=== PATIENT | female | born 1950 | race Caucasian/White ===

== ENCOUNTER → 2019-02-21 | Outpatient (REF) | payer MEDICARE, BC ==
[~2019-02-21] MED LIST: ALPR-1 PO; ALPR-429 PO; AMOX-559 PO; CHOL100052 PO; CIPR-345 PO; CRAN200C5 PO; DALFAM10PT PO; DAR100 PO; DIPH-1 PO; ESCI10TA8 PO; FIDA200T PO; GLUC1TAB13 PO; LEVO25TA61 PO; LEVO50TA86 PO; LOPE2CAP15 PO; METR500T15 PO; SOLI5TAB PO; SYNTHROID; TIZA-1 PO; VANC125C10 PO; XANAX; biotin PO
[2019-02-21 12:09] LABS: PLATELET COUNT, AUTOMATED 233 K/uL (150-450)
== END ==
LOC: ZZPREMIUM 11:45
PROVIDERS: ATTEND Internal Medicine
DX: R41.9 Unspecified symptoms and signs involving cognitive functions and awareness (principal); E03.9 Hypothyroidism, unspecified; G36.0 Neuromyelitis optica [Devic]; Z96.641 Presence of right artificial hip joint
CPT/HCPCS: 82040; 82247; 82310; 82374; 82435; 82565; 82728; 82947; 83540; 83550; 84075; 84132; 84155; 84295; 84443; 84450; 84460; 84520; 85025

== ENCOUNTER → 2019-04-23 | Outpatient (CLI) | payer MEDICARE, BC ==
[~2019-04-23] MED LIST changes: +OXYB5TAB86 PO
== END ==
LOC: AMB 18:55
PROVIDERS: ATTEND Nurse Practitioner
DX: J96.90 Respiratory failure, unspecified, unspecified whether with hypoxia or hypercapnia (principal)